=== PATIENT | male | born 1960 | race Two or more races ===

== ENCOUNTER 2017-04-15 23:34 | Emergency (ER) | payer MEDICAID ==
[~2017-04-15] VITALS: Ht 172.7 cm; Wt 74.8 kg
[2017-04-16] VITALS: BP 172/113
== END 2017-04-16 05:22 | disposition left against medical advice (07) ==
LOC: ER 23:43
DX: S91.012A Laceration without foreign body, left ankle, initial encounter (principal); Z53.21 Procedure and treatment not carried out due to patient leaving prior to being seen by health care provider; X58.XXXA Exposure to other specified factors, initial encounter; Y93.89 Activity, other specified; Y92.89 Other specified places as the place of occurrence of the external cause; Y99.8 Other external cause status